=== PATIENT | male | born 1965 | race African-American/Black ===

== ENCOUNTER 2022-05-12 15:02 | Emergency (ER) | payer SELFPAY ==
[~2022-05-12 15:02] MED LIST: Iopamidol 370 76% 125 ML VIAL FS ONE
[2022-05-12 15:36] LABS: #Basophils 0.2 thou/uL (0.0-0.2); #Eosinphils 0.1 thou/uL (0.0-0.7); #Lymphocytes 1.9 thou/uL (1.20-3.40); #Monocytes 0.7 thou/uL (0.11-0.59); #Neutrophils 4.2 thou/uL (1.40-6.50); %Basophils 2.2 % (0.0-1.0); %Eosinophils 0.7 % (0.0-10.0); %Lymphocytes 26.9 % (21.0-51.0); %Monocytes 10.1 % (0.0-10.0); %Neutrophils 60.1 % (42.0-75.0); Hemoglobin 15.3 g/dL (14.0-18.0); Mean Corpuscular Hemoglobin 33.2 pg (27.0-31.0); Mean Corpuscular Volume 100.7 fL (78.0-98.0); Mean Platelet Volume 8.4 fL (7.4-10.4); Platelet Count 307 thou/uL (130-400); RBC Distribution Width 12.7 % (11.5-14.5); Red Blood Cell (RBC) Count 4.61 mill/uL (4.70-6.10)
[2022-05-12 15:51] LABS: ALT (SGPT) 12 U/L (8-55); AST (SGOT) 17 U/L (5-34); Albumin 3.8 g/dL (3.5-5.0); Alkaline Phosphatase 78 U/L (40-110); Anion Gap 16 mmol/L (10-20); BUN (Urea Nitrogen) 10 mg/dL (8.4-25.7); Calc. Creatinine Clearance 0 mL/min (70-130); Calcium 9.7 mg/dL (7.8-10.44); Carbon Dioxide 24 mmol/L (22-29); Chloride 103 mmol/L (98-107); Estimated GFR 75; Globulin 3.6 g/dL (2.4-3.5); Glucose 90 mg/dL (70-105); Magnesium 1.9 mg/dL (1.6-2.6); Potassium 4.5 mmol/L (3.5-5.1); Protein, Total 7.4 g/dL (6.0-8.3); Sodium 138 mmol/L (136-145)
[2022-05-12] MEDS ORDERED: Aspirin Chewable 81 MG TAB ONE (16:39)
[2022-05-12] MEDS ORDERED: Lactated Ringer's 1,000 ML ONE (16:39)
[2022-05-12 16:49] LABS: Bilirubin Negative (Negative); Blood, Urine Negative (Negative); Clarity Clear (Clear); Glucose, Urine (Dipstick) Negative (Negative); Ketone, Urine Negative (Negative); Leukocyte Negative (Negative); Nitrite Negative (Negative); Protein, Urine (Dipstick) Negative (Neg-Trace); Urobilinogen 0.2 mg/dL (Less than 2)
[2022-05-12] MEDS ORDERED: Furosemide 40 MG TAB ONE (17:04)
== END 2022-05-12 17:00 | disposition left against medical advice (07) ==
LOC: MADERS 15:02
DX: I11.0 Hypertensive heart disease with heart failure (principal); I50.9 Heart failure, unspecified; J90 Pleural effusion, not elsewhere classified; R00.0 Tachycardia, unspecified; R77.8 Other specified abnormalities of plasma proteins; E78.00 Pure hypercholesterolemia, unspecified; F17.210 Nicotine dependence, cigarettes, uncomplicated
CPT/HCPCS: 71045; 71275; 80053; 81003; 82553; 83735; 83880; 84443; 84484; 85025; 93005; 94760; J7120; Q9967

== ENCOUNTER 2022-05-26 11:14 | Emergency (ER) | payer SELFPAY ==
[~2022-05-26 11:14] MED LIST changes: +Sodium Chloride 0.9% 100 ML BAG ONE
[2022-05-26 11:53] LABS: Eosinophils 1 % (0-10); Hemoglobin 14.2 g/dL (14.0-18.0); Lymphocytes 17 % (21-51); MDiff Complete? YES; Mean Corpuscular HGB CONC 33.5 g/dL (32.0-36.0); Mean Corpuscular Hemoglobin 33.6 pg (27.0-31.0); Mean Corpuscular Volume 100.5 fl (78.0-98.0); Mean Platelet Volume 8.2 fL (7.4-10.4); Monocytes 10 % (0-10); Neutrophil 72 % (42-75); Platelet Count 266 thou/uL (130-400); Platelet Morphology Comment Appears Adequate; RBC Morphology Normal; Red Blood Cell (RBC) Count 4.23 mill/uL (4.70-6.10)
[2022-05-26 11:54] LABS: Base Excess-Venous 2.6 mmol/L (-2.0 to 3.0); Bicarbonate (HCO3v) 27.8 mmol/L (22.0-28.0); CO2 Tension (PvCO2) 43.8 mmHg (42.0-51.0); Calcium, Ionized 1.13 mmol/L (1.15-1.33); Chloride 103 mmol/L (98-107); Hemoglobin - Calc 15.9 g/dL (14.0-18.0); Potassium 3.9 mmol/L (3.5-5.1); Sodium 140 mmol/L (138-145); T. Carbon Dioxide 29.2 mmol/L (22.0-28.0); vO2 Saturation-calc 49.9 % (60.0-85.0)
[2022-05-26 11:59] LABS: ALT (SGPT) 20 U/L (8-55); AST (SGOT) 23 U/L (5-34); Albumin 3.7 g/dL (3.5-5.0); Alkaline Phosphatase 81 U/L (40-110); Anion Gap 14 mmol/L (10-20); BUN (Urea Nitrogen) 12 mg/dL (8.4-25.7); Calc. Creatinine Clearance 0 mL/min (70-130); Calcium 9.2 mg/dL (7.8-10.44); Carbon Dioxide 26 mmol/L (22-29); Chloride 101 mmol/L (98-107); Estimated GFR 61; Globulin 3.4 g/dL (2.4-3.5); Glucose 95 mg/dL (70-105); Magnesium 1.7 mg/dL (1.6-2.6); Potassium 4.1 mmol/L (3.5-5.1); Protein, Total 7.1 g/dL (6.0-8.3); Sodium 137 mmol/L (136-145)
[2022-05-26 12:00] LABS: Acetaminophen Less than 10.0 mcg/mL (10.0-30.0); Alcohol Less than 10 mg/dL (Less than 10); Salicylate Less than 8.0 mg/dL (15.0-30.0)
[2022-05-26] MEDS ORDERED: Azithromycin 500 MG VIAL ONE (12:22)
[2022-05-26] MEDS ORDERED: Nitroglycerin 2% Ointment 1 INCH/1 GM Packet ONE (12:22)
[2022-05-26] MEDS ORDERED: Sodium Chloride 0.9% 100 ML ONE (12:22)
[2022-05-26] MEDS ORDERED: Aspirin 325 MG TAB ONE (12:22)
[2022-05-26] MEDS ORDERED: cefTRIAXone\\ROCEPHIN 1 GM VIAL ONE (12:22)
[2022-05-26] MEDS ORDERED: Sodium Chloride 0.9% 250 ML 250 ML ONE (12:22)
[2022-05-26 12:30] LABS: CKMB 3.9 ng/mL (0-6.6)
[2022-05-26] MEDS ORDERED: Lorazepam 2 MG/ML VIAL ONE ×2 (12:59→13:20)
[2022-05-26] MEDS ORDERED: Furosemide 40 MG/4 ML VIAL ONE (13:20)
[2022-05-26 15:37] LABS: Amphetamine Detected (NotDetected); Barbiturates Screen Not Detected (NotDetected); Benzodiazepine Screen Not Detected (NotDetected); Cocaine Metabolite Screen Not Detected (NotDetected); Medtox Control Line Valid? VALID (VALID); Methadone Not Detected (NotDetected); Methamphetamine Detected (NotDetected); Opiate Screen Not Detected (NotDetected); Oxycodone Screen Not Detected (NotDetected); Phencyclidine (PCP) Not Detected (NotDetected); THC/Cannabinoid Screen Not Detected (NotDetected); Tricyclic Screen Not Detected (NotDetected)
== END 2022-05-26 14:09 | disposition short-term general hospital (02) ==
LOC: MADERS 11:14
DX: I21.4 Non-ST elevation (NSTEMI) myocardial infarction (principal); J90 Pleural effusion, not elsewhere classified; R00.0 Tachycardia, unspecified; I10 Essential (primary) hypertension; E78.00 Pure hypercholesterolemia, unspecified; F17.210 Nicotine dependence, cigarettes, uncomplicated; Z20.822 Contact with and (suspected) exposure to COVID-19
CPT/HCPCS: 71045; 71275; 80053; 80306; 80307; 82330; 82553; 82803; 83605; 83735; 83880; 84443; 84484; 85025; 87040; 93005; 96365; 96375; J0456; J0696; J1940; J2060; J3490; J7050; Q9967

== ENCOUNTER 2022-06-12 04:30 | Emergency (ER) | payer SELFPAY ==
[2022-06-12] MEDS ORDERED: Furosemide 40 MG/4 ML VIAL ONE (05:05)
[2022-06-12 05:22] LABS: Base Excess-Venous -2.8 mmol/L (-2.0 to 3.0); Bicarbonate (HCO3v) 22.8 mmol/L (22.0-28.0); CO2 Tension (PvCO2) 41.7 mmHg (42.0-51.0); Calcium, Ionized 1.18 mmol/L (1.15-1.33); Chloride 105 mmol/L (98-107); Hemoglobin - Calc 14.9 g/dL (14.0-18.0); Potassium 4.2 mmol/L (3.5-5.1); Sodium 139 mmol/L (138-145); T. Carbon Dioxide 24.1 mmol/L (22.0-28.0); vO2 Saturation-calc 65.3 % (60.0-85.0)
[2022-06-12 05:23] LABS: Band 2 % (5-11); Hemoglobin 14.4 g/dL (14.0-18.0); Lymphocytes 20 % (21-51); MDiff Complete? YES; Mean Corpuscular Volume 100.3 fl (78.0-98.0); Mean Platelet Volume 7.5 fL (7.4-10.4); Monocytes 11 % (0-10); Neutrophil 59 % (42-75); Platelet Count 335 10x3/uL (130-400); RBC Distribution Width 12.8 % (11.5-14.5); RBC Morphology Normal; Reactive Lymphocytes 6 % (0-10); Red Blood Cell (RBC) Count 4.37 mill/uL (4.70-6.10); White Blood Cell (WBC) Count 6.8 10x3/uL (4.8-10.8)
[2022-06-12 05:26] LABS: ALT (SGPT) 67 U/L (8-55); AST (SGOT) 55 U/L (5-34); Albumin 4.3 g/dL (3.5-5.0); Alkaline Phosphatase 124 U/L (40-110); Anion Gap 19 mmol/L (10-20); BUN (Urea Nitrogen) 17 mg/dL (8.4-25.7); Bilirubin, Total 0.7 mg/dL (0.2-1.2); Calc. Creatinine Clearance 0 mL/min (70-130); Calcium 9.9 mg/dL (7.8-10.44); Carbon Dioxide 21 mmol/L (22-29); Chloride 105 mmol/L (98-107); Estimated GFR 63; Globulin 3.3 g/dL (2.4-3.5); Glucose 94 mg/dL (70-105); Potassium 4.5 mmol/L (3.5-5.1); Protein, Total 7.6 g/dL (6.0-8.3); Sodium 140 mmol/L (136-145)
[2022-06-12 05:40] LABS: Bilirubin Negative (Negative); Blood, Urine Negative (Negative); Clarity Clear (Clear); Glucose, Urine (Dipstick) Negative (Negative); Ketone, Urine Negative (Negative); Leukocyte Negative (Negative); Nitrite Negative (Negative); Protein, Urine (Dipstick) Negative (Neg-Trace); Specific Gravity, Urine 1.025 (1.005-1.030); Urobilinogen 0.2 mg/dL (Less than 2)
[2022-06-12 05:54] LABS: Cocaine Metabolite Screen Not Detected (NotDetected); Phencyclidine (PCP) Not Detected (NotDetected); THC/Cannabinoid Screen Not Detected (NotDetected)
[2022-06-12 05:55] LABS: Amphetamine Detected (NotDetected); Barbiturates Screen Not Detected (NotDetected); Benzodiazepine Screen Not Detected (NotDetected); Medtox Control Line Valid? VALID (VALID); Methadone Not Detected (NotDetected); Methamphetamine Detected (NotDetected); Opiate Screen Not Detected (NotDetected); Oxycodone Screen Not Detected (NotDetected); Tricyclic Screen Not Detected (NotDetected)
[2022-06-12] MEDS ORDERED: Lisinopril 10 MG TAB ONE (07:02)
[2022-06-12] MEDS ORDERED: Iopamidol 370 76% 125 ML VIAL FS ONE (07:45)
[2022-06-12] MEDS ORDERED: Sodium Chloride 0.9% 100 ML BAG ONE (07:45)
[2022-06-12 11:53] LABS: CKMB 4.6 ng/mL (0-6.6)
== END 2022-06-12 09:58 | disposition short-term general hospital (02) ==
LOC: MADERS 04:30
DX: I11.0 Hypertensive heart disease with heart failure (principal); I50.9 Heart failure, unspecified; J10.1 Influenza due to other identified influenza virus with other respiratory manifestations; J90 Pleural effusion, not elsewhere classified; F15.10 Other stimulant abuse, uncomplicated; R79.1 Abnormal coagulation profile; E78.00 Pure hypercholesterolemia, unspecified; F17.210 Nicotine dependence, cigarettes, uncomplicated; Z79.899 Other long term (current) drug therapy
CPT/HCPCS: 71045; 71275; 80053; 80306; 81003; 82330; 82553; 82803; 83880; 84484; 85025; 85379; 87804; 96374; J1940; Q9967

== ENCOUNTER 2022-09-28 15:10 | Emergency (ER) | payer SELFPAY ==
[2022-09-28] MEDS ORDERED: Aspirin Chewable 81 MG TAB ONE (15:58)
[2022-09-28] MEDS ORDERED: Ipratropium/Albuterol 3 ML NEB ONE (15:58)
[2022-09-28] MEDS ORDERED: Nitroglycerin 2% Ointment 1 INCH/1 GM Packet ONE (15:58)
[2022-09-28 16:07] LABS: #Basophils 0.1 thou/uL (0.0-0.2); #Lymphocytes 1.1 thou/uL (1.20-3.40); #Monocytes 0.8 thou/uL (0.11-0.59); #Neutrophils 5.8 thou/uL (1.40-6.50); %Eosinophils 0.2 % (0.0-10.0); %Lymphocytes 13.6 % (21.0-51.0); %Monocytes 9.8 % (0.0-10.0); %Neutrophils 75.3 % (42.0-75.0); Hemoglobin 12.8 g/dL (14.0-18.0); Mean Corpuscular HGB CONC 34.4 g/dL (32.0-36.0); Mean Corpuscular Hemoglobin 32.2 pg (27.0-31.0); Mean Corpuscular Volume 93.7 fl (78.0-98.0); Mean Platelet Volume 7.2 fL (7.4-10.4); Platelet Count 246 10x3/uL (130-400); RBC Distribution Width 13.6 % (11.5-14.5); Red Blood Cell (RBC) Count 3.97 mill/uL (4.70-6.10); White Blood Cell (WBC) Count 7.7 10x3/uL (4.8-10.8)
[2022-09-28 16:10] LABS: PTT 27.1 sec (22.9-36.1); Prothrombin Time 13.2 sec (12.0-14.7)
[2022-09-28 16:18] LABS: ALT (SGPT) 32 U/L (8-55); AST (SGOT) 33 U/L (5-34); Albumin 3.9 g/dL (3.5-5.0); Alkaline Phosphatase 91 U/L (40-110); Anion Gap 12 mmol/L (10-20); BUN (Urea Nitrogen) 10 mg/dL (8.4-25.7); Bilirubin, Total 1.6 mg/dL (0.2-1.2); Calc. Creatinine Clearance 0 mL/min (70-130); Carbon Dioxide 23 mmol/L (22-29); Chloride 102 mmol/L (98-107); Estimated GFR 91; Globulin 2.8 g/dL (2.4-3.5); Glucose 84 mg/dL (70-105); Magnesium 1.7 mg/dL (1.6-2.6); Potassium 4.3 mmol/L (3.5-5.1); Protein, Total 6.7 g/dL (6.0-8.3); Sodium 133 mmol/L (136-145)
[2022-09-28 16:44] LABS: SARS-CoV-2 NAA Rapid Test Not Detected (NotDetected)
[2022-09-28 17:09] LABS: CKMB 2.7 ng/mL (0-6.6)
[2022-09-28] MEDS ORDERED: Furosemide 40 MG/4 ML VIAL ONE (17:34)
== END 2022-09-28 18:30 | disposition left against medical advice (07) ==
LOC: MADERS 15:10
DX: I11.0 Hypertensive heart disease with heart failure (principal); I50.9 Heart failure, unspecified; E78.00 Pure hypercholesterolemia, unspecified; F17.210 Nicotine dependence, cigarettes, uncomplicated; Z79.899 Other long term (current) drug therapy; Z20.822 Contact with and (suspected) exposure to COVID-19
CPT/HCPCS: 71045; 80053; 82553; 83605; 83735; 84484; 85025; 85610; 85730; 87040; 93005; 96374; J1940; J7620; U0002

== ENCOUNTER 2023-03-19 02:04 | Emergency (ER) | payer SELFPAY ==
[2023-03-19] MEDS ORDERED: Lorazepam 2 MG/ML VIAL ONE (02:21)
[2023-03-19] MEDS ORDERED: Ondansetron PF 4 MG/2 ML Vial ONE (02:22)
[2023-03-19] MEDS ORDERED: Aspirin Chewable 81 MG TAB ONE (02:22)
[2023-03-19] MEDS ORDERED: Carvedilol 6.25 MG TAB ONE (02:22)
[2023-03-19 02:32] LABS: Hematocrit 37.8 % (42.0-52.0); Hemoglobin 12.4 g/dL (14.0-18.0); Red Blood Cell (RBC) Count 3.69 mill/uL (4.70-6.10); White Blood Cell (WBC) Count 5.4 10x3/uL (4.8-10.8)
[2023-03-19 02:33] LABS: #Basophils 0.1 thou/uL (0.0-0.2); #Eosinphils 0.1 thou/uL (0.0-0.7); #Lymphocytes 1.3 thou/uL (1.20-3.40); #Monocytes 0.6 thou/uL (0.11-0.59); #Neutrophils 3.3 thou/uL (1.40-6.50); %Basophils 2.1 % (0.0-1.0); %Eosinophils 1.7 % (0.0-10.0); %Lymphocytes 24.3 % (21.0-51.0); %Neutrophils 60.9 % (42.0-75.0); Mean Corpuscular HGB CONC 32.9 g/dL (32.0-36.0); Mean Corpuscular Hemoglobin 33.7 pg (27.0-31.0); Mean Platelet Volume 9.4 fL (7.4-10.4); Platelet Count 212 10x3/uL (130-400); RBC Distribution Width 14.9 % (11.5-14.5)
[2023-03-19 02:38] LABS: INR-International Normal Ratio 1.1; Prothrombin Time 14.4 sec (12.0-14.7)
[2023-03-19 02:55] LABS: ALT (SGPT) 75 U/L (8-55); AST (SGOT) 54 U/L (5-34); Acetaminophen Less than 10 mcg/mL (10.0-30.0); Albumin 3.6 g/dL (3.5-5.0); Alcohol Less than 10.0 mg/dL (Less than 10); Alkaline Phosphatase 102 U/L (40-110); Anion Gap 14 mmol/L (10-20); BUN (Urea Nitrogen) 11 mg/dL (8.4-25.7); Bilirubin, Total 1.3 mg/dL (0.2-1.2); Calc. Creatinine Clearance 0 mL/min (70-130); Calcium 8.8 mg/dL (7.8-10.44); Carbon Dioxide 22 mmol/L (22-29); Chloride 108 mmol/L (98-107); Estimated GFR 58; Globulin 2.7 g/dL (2.4-3.5); Glucose 100 mg/dL (70-105); Lipase 27 U/L (8-78); Magnesium 1.9 mg/dL (1.6-2.6); Potassium 3.9 mmol/L (3.5-5.1); Protein, Total 6.3 g/dL (6.0-8.3); Salicylate Less than 8.0 mg/dL (15.0-30.0); Sodium 140 mmol/L (136-145); Troponin I 0.087 ng/mL (< 0.028)
[2023-03-19] MEDS ORDERED: Furosemide 40 MG/4 ML VIAL ONE (02:59)
[2023-03-19] MEDS ORDERED: Nitroglycerin 2% Ointment 1 INCH/1 GM Packet ONE (03:06)
[2023-03-19 03:45] LABS: Amphetamine Detected (NotDetected); Barbiturates Screen Not Detected (NotDetected); Benzodiazepine Screen Not Detected (NotDetected); Cocaine Metabolite Screen Not Detected (NotDetected); Methadone Not Detected (NotDetected); Methamphetamine Detected (NotDetected); Opiate Screen Not Detected (NotDetected); Oxycodone Screen Not Detected (NotDetected); Phencyclidine (PCP) Not Detected (NotDetected); THC/Cannabinoid Screen Detected (NotDetected); Tricyclic Screen Not Detected (NotDetected)
== END 2023-03-19 03:52 | disposition short-term general hospital (02) ==
LOC: MADERS 02:04
DX: I11.0 Hypertensive heart disease with heart failure (principal); I50.9 Heart failure, unspecified; R77.8 Other specified abnormalities of plasma proteins; F10.11 Alcohol abuse, in remission; F15.10 Other stimulant abuse, uncomplicated; R74.01 Elevation of levels of liver transaminase levels; Z91.148 Patient's other noncompliance with medication regimen for other reason; E78.00 Pure hypercholesterolemia, unspecified; F17.210 Nicotine dependence, cigarettes, uncomplicated; Z79.899 Other long term (current) drug therapy
CPT/HCPCS: 71045; 80053; 80306; 80307; 83605; 83690; 83735; 83880; 84484; 85025; 85610; 93005; 96374; 96375; J1940; J2060; J2405

== ENCOUNTER 2023-05-30 13:52 | Emergency (ER) | payer OTHER ==
[2023-05-30] MEDS ORDERED: Furosemide 40 MG/4 ML VIAL ONE (14:28)
[2023-05-30 14:47] LABS: ALT (SGPT) 29 U/L (8-55); AST (SGOT) 22 U/L (5-34); Albumin 3.3 g/dL (3.5-5.0); Alkaline Phosphatase 93 U/L (40-110); Anion Gap 14 mmol/L (10-20); BUN (Urea Nitrogen) 12 mg/dL (8.4-25.7); Bilirubin, Total 0.8 mg/dL (0.2-1.2); Calc. Creatinine Clearance 0 mL/min (70-130); Calcium 8.6 mg/dL (7.8-10.44); Carbon Dioxide 22 mmol/L (22-29); Chloride 107 mmol/L (98-107); Estimated GFR 89; Globulin 2.9 g/dL (2.4-3.5); Glucose 115 mg/dL (70-105); Potassium 3.9 mmol/L (3.5-5.1); Protein, Total 6.2 g/dL (6.0-8.3); Sodium 139 mmol/L (136-145)
[2023-05-30 14:56] LABS: Band 1 % (5-11); Eosinophils 3 % (0-10); Hematocrit 35.8 % (42.0-52.0); Hemoglobin 11.4 g/dL (14.0-18.0); Lymphocytes 13 % (21-51); MDiff Complete? YES; Mean Corpuscular HGB CONC 31.9 g/dL (32.0-36.0); Mean Corpuscular Hemoglobin 33.3 pg (27.0-31.0); Mean Corpuscular Volume 104.3 fl (78.0-98.0); Mean Platelet Volume 8.5 fL (7.4-10.4); Monocytes 8 % (0-10); Neutrophil 62 % (42-75); Platelet Count 290 10x3/uL (130-400); RBC Distribution Width 14.3 % (11.5-14.5); Red Blood Cell (RBC) Count 3.44 mill/uL (4.70-6.10); White Blood Cell (WBC) Count 4.7 10x3/uL (4.8-10.8)
[2023-05-30 14:57] LABS: Manual Diff?? YES; Platelet Adequacy Comment Appears Adequate; Reactive Lymphocytes 13 % (0-10)
[2023-05-30] MEDS ORDERED: Aspirin Chewable 81 MG TAB ONE (15:04)
[2023-05-30] MEDS ORDERED: hydrALAZINE 20 MG/ML VIAL ONE ×2 (15:11→16:19)
[2023-05-30 16:50] LABS: Amphetamine Detected (NotDetected); Benzodiazepine Screen Not Detected (NotDetected); Cocaine Metabolite Screen Not Detected (NotDetected); Methadone Not Detected (NotDetected); Methamphetamine Detected (NotDetected); Opiate Screen Not Detected (NotDetected); Phencyclidine (PCP) Not Detected (NotDetected); THC/Cannabinoid Screen Not Detected (NotDetected); Tricyclic Screen Not Detected (NotDetected)
[2023-05-30 16:51] LABS: Barbiturates Screen Not Detected (NotDetected); Oxycodone Screen Not Detected (NotDetected)
== END 2023-05-30 17:22 | disposition short-term general hospital (02) ==
LOC: MADERS 13:52
DX: I11.0 Hypertensive heart disease with heart failure (principal); I50.9 Heart failure, unspecified; F17.210 Nicotine dependence, cigarettes, uncomplicated
CPT/HCPCS: 71045; 80053; 80306; 83735; 83880; 84484; 85025; 93005; 94760; 96374; 96375; 96376; J0360; J1940

== ENCOUNTER 2023-06-27 16:07 | Emergency (ER) | payer OTHER ==
[~2023-06-27 16:07] MED LIST changes: +Iopamidol 370 76% 100 ML VIAL ONE; -Iopamidol 370 76% 125 ML VIAL FS ONE; -Sodium Chloride 0.9% 100 ML BAG ONE
[2023-06-27] MEDS ORDERED: methylPREDNISolone Sod Succ/PF 125 MG/2 ML VIAL ONE (17:06)
[2023-06-27] MEDS ORDERED: Furosemide 40 MG/4 ML VIAL ONE (17:06)
[2023-06-27] MEDS ORDERED: Famotidine/PF 20 mg/2ml Vial ONE (17:07)
[2023-06-27 17:08] LABS: Base Excess-Venous 1.1 mmol/L (-2.0 to 3.0); Bicarbonate (HCO3v) 24.3 mmol/L (22.0-28.0); CO2 Tension (PvCO2) 33.1 mmHg (42.0-51.0); Calcium, Ionized 1.13 mmol/L (1.15-1.33); Chloride 101 mmol/L (98-107); Hemoglobin - Calc 12.9 g/dL (14.0-18.0); Sodium 134 mmol/L (138-145); T. Carbon Dioxide 25.3 mmol/L (22.0-28.0); vO2 Saturation-calc 98.8 % (60.0-85.0)
[2023-06-27 17:09] LABS: Hematocrit 35.8 % (42.0-52.0); Hemoglobin 11.3 g/dL (14.0-18.0); Mean Corpuscular HGB CONC 31.6 g/dL (32.0-36.0); Mean Corpuscular Hemoglobin 31.6 pg (27.0-31.0); Mean Platelet Volume 8.7 fL (7.4-10.4); Platelet Count 205 10x3/uL (130-400); RBC Distribution Width 13.9 % (11.5-14.5); Red Blood Cell (RBC) Count 3.58 mill/uL (4.70-6.10)
[2023-06-27 17:14] LABS: ALT (SGPT) 31 U/L (8-55); AST (SGOT) 30 U/L (5-34); Albumin 3.6 g/dL (3.5-5.0); Alkaline Phosphatase 80 U/L (40-110); Anion Gap 13 mmol/L (10-20); BUN (Urea Nitrogen) 11 mg/dL (8.4-25.7); Calc. Creatinine Clearance 0 mL/min (70-130); Calcium 8.4 mg/dL (7.8-10.44); Carbon Dioxide 22 mmol/L (22-29); Chloride 101 mmol/L (98-107); Estimated GFR 73; Globulin 2.7 g/dL (2.4-3.5); Glucose 105 mg/dL (70-105); INR-International Normal Ratio 1.2; Magnesium 1.8 mg/dL (1.6-2.6); Potassium 4.1 mmol/L (3.5-5.1); Protein, Total 6.3 g/dL (6.0-8.3); Prothrombin Time 16.1 sec (12.0-14.7); Sodium 132 mmol/L (136-145)
[2023-06-27 17:15] LABS: PTT 28.6 sec (22.9-36.1)
[2023-06-27 17:17] LABS: D-Dimer Test 1.24 *mcg/mL (0.27-0.43)
[2023-06-27 17:24] LABS: Troponin I 0.089 ng/mL (< 0.028)
[2023-06-27] MEDS ORDERED: CEFAZOLIN 2 GM VIAL ONE (17:31)
[2023-06-27] MEDS ORDERED: Vancomycin 1 GM VIAL ONE (17:31)
[2023-06-27] MEDS ORDERED: Azithromycin 500 MG VIAL ONE (17:31)
[2023-06-27] MEDS ORDERED: Sodium Chloride 0.9% 250 ML 750 ML ONE (17:32)
[2023-06-27] MEDS ORDERED: Sodium Chloride 0.9% 0 ML ONE (17:32)
[2023-06-27] MEDS ORDERED: Aspirin Chewable 81 MG TAB ONE (17:33)
[2023-06-27 17:34] LABS: Band 3 % (5-11); Lymphocytes 11 % (21-51); MDiff Complete? YES; Metamyelocyte 1 % (0-0); Monocytes 10 % (0-10); Neutrophil 75 % (42-75); Platelet Adequacy Comment Appears Adequate
[2023-06-27 17:40] LABS: Acetaminophen 16 mcg/mL (10.0-30.0); Alcohol Less than 10.0 mg/dL (Less than 10); Salicylate Less than 8.0 mg/dL (15.0-30.0)
[2023-06-27 17:41] LABS: SARS-CoV-2 NAA Rapid Test DETECTED (NotDetected)
[2023-06-27] MEDS ORDERED: Cefepime 2 GM VIAL ONE (17:43)
[2023-06-27] MEDS ORDERED: EPINEPHrine 1 MG/ML VIAL ONE (17:43)
[2023-06-27] MEDS ORDERED: Sodium Chloride 0.9% 100 ML ONE (17:44)
== END 2023-06-27 21:24 | disposition short-term general hospital (02) ==
LOC: MADERS 16:07
DX: U07.1 COVID-19 (principal); J18.9 Pneumonia, unspecified organism; T78.3XXA Angioneurotic edema, initial encounter; I11.0 Hypertensive heart disease with heart failure; I50.9 Heart failure, unspecified; E78.00 Pure hypercholesterolemia, unspecified; R79.89 Other specified abnormal findings of blood chemistry; I63.9 Cerebral infarction, unspecified; F17.210 Nicotine dependence, cigarettes, uncomplicated
CPT/HCPCS: 70450; 70491; 71045; 71275; 80053; 80307; 82140; 82330; 82803; 83605; 83735; 83880; 84443; 84484; 85025; 85379; 85610; 85730; 87040; 93005; 94760; 96365; 96367; 96372; 96375; J0171; J0456; J0692; J1940; J2930; J3370; J3490; J7050; Q9967; S0028

== ENCOUNTER 2023-12-13 10:55 | Emergency (ER) | payer OTHER ==
[2023-12-13] MEDS ORDERED: Furosemide 40 MG (4 mL) VIAL ONE ×2 (11:03→12:59)
[2023-12-13 11:38] LABS: ALT (SGPT) 23 U/L (8-55); AST (SGOT) 23 U/L (5-34); Albumin 3.8 g/dL (3.5-5.0); Alkaline Phosphatase 116 U/L (40-110); Anion Gap 16 mmol/L (10-20); BUN (Urea Nitrogen) 11 mg/dL (8.4-25.7); Bilirubin, Total 2.6 mg/dL (0.2-1.2); Calc. Creatinine Clearance 0 mL/min (70-130); Carbon Dioxide 21 mmol/L (22-29); Chloride 106 mmol/L (98-107); Estimated GFR 83; Globulin 3.2 g/dL (2.4-3.5); Glucose 96 mg/dL (70-105); Potassium 3.9 mmol/L (3.5-5.1); Sodium 139 mmol/L (136-145)
[2023-12-13 11:39] LABS: Acetaminophen Less than 10 mcg/mL (10.0-30.0); Alcohol Less than 10.0 mg/dL (Less than 10); Anisocytosis SLIGHT = 6-15 cells (100X) (0-5/hpf); Band 1 % (5-11); Eosinophils 1 % (0-10); Hypochromia SLIGHT = 6-15 cells (100X) (0-5/hpf); Lymphocytes 8 % (21-51); MDiff Complete? YES; Macrocytosis SLIGHT = 6-15 cells (100X) (0-5/hpf); Magnesium 1.9 mg/dL (1.6-2.6); Manual Diff?? YES; Mean Corpuscular HGB CONC 30.1 g/dL (32.0-36.0); Mean Corpuscular Hemoglobin 30.6 pg (27.0-31.0); Mean Corpuscular Volume 101.8 fl (78.0-98.0); Monocytes 6 % (0-10); Neutrophil 70 % (42-75); Platelet Count 226 10x3/uL (130-400); Polychromasia SLIGHT = 2-3 cells (100X) (0-2/hpf); RBC Distribution Width 15.8 % (11.5-14.5); Red Blood Cell (RBC) Count 3.93 mill/uL (4.70-6.10); Salicylate Less than 8.0 mg/dL (15.0-30.0); Troponin I 0.094 ng/mL (< 0.028); White Blood Cell (WBC) Count 5.6 10x3/uL (4.8-10.8)
[2023-12-13 11:40] LABS: Platelet Adequacy Comment Appears Adequate; Reactive Lymphocytes 14 % (0-10)
[2023-12-13] MEDS ORDERED: Aspirin 325 MG TAB ONE (11:47)
[2023-12-13] MEDS ORDERED: Lisinopril 10 MG TAB ONE (11:47)
[2023-12-13] MEDS ORDERED: Carvedilol 6.25 MG TAB ONE (11:47)
[2023-12-13 11:55] LABS: Amphetamine Detected (NotDetected); Barbiturates Screen Not Detected (NotDetected); Benzodiazepine Screen Not Detected (NotDetected); Cocaine Metabolite Screen Not Detected (NotDetected); Methadone Not Detected (NotDetected); Methamphetamine Detected (NotDetected); Opiate Screen Not Detected (NotDetected); Oxycodone Screen Not Detected (NotDetected); Phencyclidine (PCP) Not Detected (NotDetected); THC/Cannabinoid Screen Detected (NotDetected); Tricyclic Screen Not Detected (NotDetected)
[2023-12-13 12:09] LABS: Influenza A by NAA Not Detected (NotDetected); Influenza B by NAA Not Detected (NotDetected); SARS-CoV-2 NAA Rapid Test Not Detected (NotDetected)
== END 2023-12-13 13:44 | disposition short-term general hospital (02) ==
LOC: MADERS 10:55
DX: I11.0 Hypertensive heart disease with heart failure (principal); I50.9 Heart failure, unspecified; R79.89 Other specified abnormal findings of blood chemistry; F15.10 Other stimulant abuse, uncomplicated; E78.00 Pure hypercholesterolemia, unspecified; F17.210 Nicotine dependence, cigarettes, uncomplicated; Z79.899 Other long term (current) drug therapy
CPT/HCPCS: 71045; 80053; 80306; 80307; 83735; 83880; 84484; 85025; 93005; 96374; 96376; J1940